=== PATIENT | male | born 1960 | race Caucasian/White ===

== ENCOUNTER 2019-04-25 18:37 | Emergency (ER) | payer BC ==
--- NOTE | 2019-04-25 18:42 | ER Document Report ---
ED Medical Screen (RME) - General Stated Complaint: PASSED OUT Time Seen by Provider: 04/25/19 18:39 Mode of Arrival: Stretcher Information source: Patient, Relative Notes: Patient is a 59-year-old male with past medical history of TIAs presenting to the emergency department through the front door with 's reports that patient has had inability to speak for approximately 10 minutes prior to arrival. The timeframe is a little unclear so this should be confirmed once the patient is in the back. I was called out to the parking lot as the patient fell as the was trying to get him out of the car and allegedly had a syncopal episode. When I walked outside the patient is awake looking around, his airway is patent and the ER staff is loading him onto a stretcher. Stroke protocol was initiated. Charge nurse made aware of situation. I have greeted and performed a rapid initial assessment of this patient. A comprehensive ED assessment and evaluation of the patient, analysis of test results and completion of the medical decision making process will be conducted by additional ED providers. I have specifically instructed the patient or family members with the patient to immediately return to any nursing staff should anything change in the patient's condition or with their chief complaint. This medical record was dictated with voice recognizing software. There may be grammatical, syntax errors that are unintended.
--- NOTE | 2019-04-25 19:07 | RADIOLOGY REPORT (SQ) ---
EXAM DESCRIPTION: CT HEAD WITHOUT COMPLETED DATE/TIME: 04/25/2019 6:54 pm REASON FOR STUDY: eval for stroke COMPARISON: None. TECHNIQUE: Axial images acquired through the brain without intravenous contrast. Images reviewed wi th bone, brain and subdural windows. Additional sagittal and coronal reconstructions were generated. Images stored on PACS. All CT scanners at this facility use dose modulation, iterative reconstruction, and/or weight based d osing when appropriate to reduce radiation dose to as low as reasonably achievable (ALARA). [facility]: Dose Right [facility]: CareDose [facility]: Dose Right [facility]: Teradose 4D [facility]: [employer] RADIATION DOSE: CT Rad equipment meets quality standard of care and radiation dose reduction techniq ues were employed. CTDIvol: 53.2 mGy. DLP: 991 mGy-cm. mGy. LIMITATIONS: None. FINDINGS: VENTRICLES: Normal size and contour. CEREBRUM: There is an area of loss of pinedo/ white differentiation in the left posterior parietal betito on. Normal pinedo/white matter differentiation. No areas of low density in the white matter. CEREBELLUM: No masses. No hemorrhage. No alteration of density. No evidence for acute infarction. EXTRAAXIAL SPACES: No fluid collections. No masses. ORBITS AND GLOBE: No intra- or extraconal masses. Normal contour of globe without masses. CALVARIUM: No fracture. PARANASAL SINUSES: No fluid or mucosal thickening. SOFT TISSUES: No mass or hematoma. OTHER: No other significant finding. IMPRESSION: There is an area of loss of pinedo/ white differentiation in the left posterior parietal a stephy suggestive of an acute infarction. 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 COMMENT: Pertinent findings on the imaging study reported as a CRITICAL RESULT to YUMIKO villatoro t19:02 on 04/25/2019. Category of Critical Result: Code stroke. Quality ID # 436: Final reports with documentation of one or more dose reduction techniques (e.g., Au tomated exposure control, adjustment of the mA and/or kV according to patient size, use of iterative reconstruction technique) TECHNICAL DOCUMENTATION: JOB ID: [id number] [employer]- All Rights Reserved Reading location - IP/workstation name: [email or web address]
--- NOTE | 2019-04-25 19:08 | RADIOLOGY REPORT (SQ) ---
EXAM DESCRIPTION: CHEST SINGLE VIEW COMPLETED DATE/TIME: 04/25/2019 6:55 pm REASON FOR STUDY: eval for stroke COMPARISON: None. EXAM PARAMETERS: NUMBER OF VIEWS: One view. TECHNIQUE: Single frontal radiographic view of the chest acquired. RADIATION DOSE: NA LIMITATIONS: None. FINDINGS: LUNGS AND PLEURA: No opacities, masses or pneumothorax. No pleural effusion. MEDIASTINUM AND HILAR STRUCTURES: No masses. Contour normal. HEART AND VASCULAR STRUCTURES: The heart size is borderline. There is no pulmonary edema. BONES: No acute findings. HARDWARE: None in the chest. OTHER: No other significant finding. IMPRESSION: Borderline cardiomegaly without pulmonary edema. TECHNICAL DOCUMENTATION: JOB ID: [id number] [employer]- All Rights Reserved Reading location - IP/workstation name: [email or web address]
[2019-04-25 19:13] LABS: INTERNATIONAL RATION (INR) 0.99
[2019-04-25 19:14] LABS: PARTIAL THROMBOPLASTIN TIME 22.4 SEC (23.5-35.8)
[2019-04-25 19:14] LABS: ABSOLUTE LYMPHOCYTES (AUTO) 2.5 10^3/uL (0.5-4.7); ABSOLUTE MONOCYTES (AUTO) 0.6 10^3/uL (0.1-1.4); ABSOLUTE NEUT (AUTO) 3.5 10^3/uL (1.7-8.2); BASOPHILS % (AUTO) 0.5 % (0-2); EOSINOPHILS % (AUTO) 0.7 % (0-6); HEMATOCRIT 45.7 % (37.9-51.0); HEMOGLOBIN 15.2 g/dL (13.5-17.0); LYMPHOCYTES % (AUTO) 37.2 % (13-45); MEAN CORPUSCULAR HGB CONC 33.3 g/dL (32.0-36.0); MEAN CORPUSCULAR VOLUME 90 fl (80-97); MONOCYTES % (AUTO) 8.9 % (3-13); PLATELET COUNT 169 10^3/uL (150-450); RED BLOOD COUNT 5.07 10^6/uL (4.35-5.55); RED CELL DISTRIBUTION WIDTH 14.5 % (11.5-14.0); SEGMENTED NEUTROPHILS % (AUTO) 52.7 % (42-78); TOTAL CELLS COUNTED % (AUTO) 100 %; WHITE BLOOD COUNT 6.6 10^3/uL (4.0-10.5)
[2019-04-25 19:17] LABS: PROTHROMBIN TIME 13.1 SEC (11.4-15.4)
[2019-04-25 19:25] LABS: ALBUMIN 3.6 g/dL (3.5-5.0); ALKALINE PHOSPHATASE 41 U/L (38-126); ANION GAP 8 (5-19); ASPARTATE AMINO TRANSFERASE 35 U/L (17-59); BILIRUBIN,DIRECT 0.1 mg/dL (0.0-0.4); BILIRUBIN,TOTAL 0.3 mg/dL (0.2-1.3); BLOOD UREA NITROGEN 20 mg/dL (7-20); CALCIUM 8.8 mg/dL (8.4-10.2); CARBON DIOXIDE 26 mmol/L (22-30); CHLORIDE 108 mmol/L (98-107); CREATINE KINASE 53 U/L (55-170); GLUCOSE 85 mg/dL (75-110); POTASSIUM 3.3 mmol/L (3.6-5.0); TOTAL PROTEIN 5.8 g/dL (6.3-8.2)
[2019-04-25] MEDS ORDERED: LEVETIRACETAM 1000 MG/NACL-ISO 1,000 MG/100 ML RTUPB IV ONE (19:27)
--- NOTE | 2019-04-25 19:30 | ER Document Report ---
ED General - General Chief Complaint: S/S of Possible Stroke Stated Complaint: PASSED OUT Time Seen by Provider: 04/25/19 18:39 Mode of Arrival: Stretcher - HPI Notes: Patient is a 59-year-old male with a history of high blood pressure presents the emergency department for evaluation of a potential stroke. The patient was here in town, visiting with his . He had sudden onset difficulty speaking. This was at approximately 1745. He went to the bathroom, came back and could not say any words at all per the . With standing he was extremely dizzy and having difficulty not falling. Patient's tried multiple times to convince him to come to the emergency department. She brought him here to the ED, at which point she had them outside of the car to go in on his own while she parked. He was leaning over a handrail at one point stating he was very dizzy. It was then reported that the patient was on the ground. He was brought in as a stroke alert, brought straight to CT scan. While in CT scan patient did have a seizure. This was medicated with Ativan 2 mg IV. On further questioning the patient's states that he had a similar episode about a month ago. She states he was unable to speak, but went to sleep and woke the next day fine. - Related Data Allergies/Adverse Reactions: codeine Adverse Reaction (Verified 04/25/19 19:04) Past Medical History - General Information source: Patient, Relative - Social History Smoking Status: Current Every Day Smoker Family History: Reviewed & Not Pertinent - Past Medical History Cardiac Medical History: Reports: Hx Hypertension GI Medical History: Reports: Hx Gastroesophageal Reflux Disease Review of Systems - Review of Systems -: Yes ROS unobtainable due to patient's medical condition - Patient entirely aphasic at this time Physical Exam - Vital signs Vitals: Temp 98.8 F 04/25/19 19:03 - Notes Notes: This is a 59-year-old male appears stated age in no acute distress. Head is normocephalic and appears atraumatic, pupils are equal round, reactive to light. Oral mucosa is moist. He does have a mild contusion abrasion to the left lower lip, as well as a linear 1 cm area of what appears to be bite trauma on the inner bugle mucosa on the right. Heart is regular rate and rhythm, lungs are clear to station bilaterally. Abdomen soft, nontender, normal active bowel sounds. Patient is drowsy but arouses easily to verbal stimuli. He has mild right-sided facial droop. He is nearly completely a phasic, only able to utter a few barely intelligible words on occasion. He is intermittently agitated. He looks at his own limbs confusedly. He does move all 4 extremity spontaneously. He would only intermittently follow commands, but does have a right-sided pronator drift. Hyperreflexive on the right. Course - Re-evaluation Re-evalutation: 04/25/19 19:59 Patient presented to the emergency department for evaluation. We had a discrete window of onset at 1745. Repeat neurological exam failed to reveal any signific ant improvement. I am concerned about this patient having potentially hit his head. I explained to the patient and his my concerns in regards to the administration of TPA in light of possible head trauma. They voiced understanding to this and the still wanted me to go ahead with this me dication. I spoke with , neurologist on the stroke team at [facility]. We discussed this patient at length. I also discussed the CT findings of the loss of pinedo-white differentiation on the CT scan. He states that this does increase the risk of hemorrhage from administration of TPA. He states that goes to approximately 6 to 9%. I explained this in detail to the patient as well as his . I explained to them my concerns, but he has no absolute contraindications to the administration of TPA. Questions were sought and answered, and the patient's did verbally agreed to the administration of TPA. This was ordered. Patient was loaded with Keppra for seizure prophylaxis, Dr. Das accepted the patient divided on the stroke team. Awaiting transfer details. - Vital Signs Vital signs: Temp Pulse Resp BP Pulse Ox 98.8 F 89 18 147/104 H 97 04/25/19 19:03 04/25/19 19:15 04/25/19 19:15 04/25/19 19:15 04/25/19 19:15 - Laboratory Result Diagrams: 04/25/19 19:00 04/25/19 19:00 Laboratory results interpreted by me: 04/25/19 04/25/19 04/25/19 19:00 19:00 19:05 RDW 14.5 H APTT 22.4 L Potassium 3.3 L Chloride 108 H Creatine Kinase 53 L Total Protein 5.8 L - Diagnostic Test Radiology reviewed: Reports reviewed Radiology results interpreted by me: 04/25/19 20:01 Chest X-Ray 04/25/19 18:39 IMPRESSION: Borderline cardiomegaly without pulmonary edema. Head CT 04/25/19 18:39 IMPRESSION: There is an area of loss of pinedo/ white differentiation in the left posterior parietal area suggestive of an acute infarction. 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 Discharge - Discharge Clinical Impression: Acute ischemic CVA Condition: Stable Disposition: [facility] Admitting Provider: Dr. Das
[2019-04-25 19:37] LABS: CREATINE KINASE MB 0.78 ng/mL (<4.55)
[2019-04-25 19:39] LABS: TROPONIN I < 0.012 ng/mL
[2019-04-25] MEDS ORDERED: LORAZEPAM INJ 2 MG/1 ML VIAL IV ONE (19:58)
[2019-04-25] MEDS ORDERED: ALTEPLASE INJ 100 MG VIAL IV ONE (19:58)
[2019-04-25 20:53] VITALS: BP 130/85
--- NOTE | 2019-04-26 08:44 | EKG REPORT ---
SEVERITY:- ABNORMAL ECG - SINUS RHYTHM LEFT ANTERIOR FASCICULAR BLOCK : Confirmed by: Tiffany Myers MD 26-Apr-2019 08:44:24
== END 2019-04-25 20:30 | disposition short-term general hospital (02) ==
LOC: ER 18:37
DX: I63.9 Cerebral infarction, unspecified (principal); R42 Dizziness and giddiness; R55 Syncope and collapse; F17.200 Nicotine dependence, unspecified, uncomplicated; I10 Essential (primary) hypertension; Z88.6 Allergy status to analgesic agent
CPT/HCPCS: 93005; 99285; 96374; 96375; 36415; 82553; 82962; 82550; 85025; 85610; 85730; 80053; 84484; 71045; 70450; 93010; J2997; J2060; J1953